=== PATIENT | male | born 1990 | race Caucasian/White ===

== ENCOUNTER 2022-07-22 13:50 | Emergency (ER) | payer OTHER, BC ==
[2022-07-22] MEDS ORDERED: Acetaminophen 325 MG Tab PO ONE (16:05)
== END 2022-07-22 16:45 | disposition home or self-care (01) ==
LOC: JD.ED 13:50
DX: S00.83XA Contusion of other part of head, initial encounter (principal); M25.511 Pain in right shoulder; E11.9 Type 2 diabetes mellitus without complications; Z72.0 Tobacco use; Z79.84 Long term (current) use of oral hypoglycemic drugs; V89.2XXA Person injured in unspecified motor-vehicle accident, traffic, initial encounter; Y92.410 Unspecified street and highway as the place of occurrence of the external cause
CPT/HCPCS: 36415; 70450; 85025; 99284; A9270